=== PATIENT | female | born 1960 | race Two or more races ===

== ENCOUNTER 2024-12-21 10:34 | Emergency (ER) | payer MEDICAID ==
[2024-12-21] MEDS: Dexamethasone 4 MG/ML SDV PO ONE (11:41)
== END 2024-12-21 11:46 | disposition home or self-care (01) ==
LOC: EDSEX 10:34 → JP.ED 10:34
DX: J02.9 Acute pharyngitis, unspecified (principal); E78.00 Pure hypercholesterolemia, unspecified; Z79.899 Other long term (current) drug therapy
CPT/HCPCS: 99283; J1100